=== PATIENT | female | born 1995 | race Caucasian/White ===

== ENCOUNTER → 2018-02-04 | Outpatient (REF) | payer OTHER | LOC: M SFHCLERA 14:17 | DX: R50.9 Fever, unspecified (principal) ==

== ENCOUNTER → 2018-08-08 | Outpatient (CLI) | payer OTHER | LOC: M RAD 12:53 | DX: R93.49 Abnormal radiologic findings on diagnostic imaging of other urinary organs (principal); Z3A.26 26 weeks gestation of pregnancy | CPT/HCPCS: 76811 ==

== ENCOUNTER 2018-08-31 14:16 | Outpatient (CLI) | payer OTHER ==
[~2018-08-31] VITALS: Ht 182.9 cm; Wt 131.7 kg
[2018-08-31 14:31] VITALS: BP 122/57
[2018-08-31] MEDS ORDERED: PRENTAB9 PO (15:02)
[2018-08-31] MEDS ORDERED: CETI5TA PO (15:02)
[2018-08-31 15:12] LABS: HEMOGLOBIN 11.5 g/dl (12.0-15.5); MEAN CORPUSCULAR HEMOGLOBIN 27.6 pg (27.0-33.0); MEAN CORPUSCULAR HGB CONC 31.9 g/dl (32.0-36.5); MEAN CORPUSCULAR VOLUME 86.3 fl (80.0-96.0); PLATELET COUNT, AUTOMATED 271 10^3/uL (150-450); RED BLOOD COUNT 4.17 10^6/uL (4.00-5.40); WHITE BLOOD COUNT 9.4 10^3/uL (4.0-10.0)
--- NOTE | 2018-09-01 10:27 | HPE ---
DATE OF ADMISSION: 08/31/2018 This is a 22-year-old, 1, para 0, last menstrual period 12/06/2017, estimated date of confinement (EDC) 10/14/2018 at 33 at 5 weeks of gestation who fell on her backside down 13 stairs 3 hours ago. She went to [facility]. She was told there was no facility for ultrasound and she was discharged. They did not do any investigation or examination. Her main complaint is she hit her large toe and it is bruised and a little bit black and blue but otherwise no vaginal loss or bleeding and no contractions. Risk factor: She has exercise-induced asthma. Her Body Mass Index (BMI) is 34.3 and the fetus has dilated renal pelvis. Labs are A+, HIV negative, hepatitis negative, RPR negative, rubella immune. Varicella immune. Pap is normal. Urine is negative. Gonorrhea and chlamydia are negative. 1-hour glucose was elevated at 146. Her 3-hour GTT her fasting was 92, her 1 hour was 198, her 2 hour was 126 and her 3 hour was 64. Her vital signs today: Her blood pressure is 122/57, respirations are 18, pulse 87, temperature 97.6. Urine is 1015 pH, 5+ leukocytes, and trace of protein. Hemoglobin 11.5, hematocrit 36.0, platelets 271. Betke Kleihauer is pending. PHYSICAL EXAMINATION: On examination, no acute distress. Symphysis fundus height is 32, vertex. No vaginal loss or bleeding. Ultrasound was performed, limited, vertex presentation. KEITH was normal. Spontaneous respirations are noted. Spontaneous movement of all four limbs were noted. KEITH was normal. Cervix was closed by vaginal exam. No active bleeding at the placental site. Her NST is category 1 with moderate variability, normal baseline, accelerations noted. No contractions. No decelerations. The rest the examination unremarkable. She is normocephalic, atraumatic. Neck with full range of motion. Pupils equal and reactive to light. Distal pulses symmetric. No evidence of deep vein thrombosis (DVT), pulmonary embolus, or superficial phlebitis. Chest is clear bilaterally to the bases. No wheezes or rhonchi. No CVA tenderness. Four quadrant bowel sounds are noted, quite pendulous abdomen is noted. She has no rashes, lesions or pruritus. She has no arthralgia, myalgia. She does complain of cramps in the big toe on the left foot from the fall, a bit of abrasion and scraping was noted. No active bleeding. No joint limitation. She has no complaint of cough, wheeze, shortness of breath, dyspnea on exertion. Not bleeding. Neuro complete. No incontinence, urgency or frequency. No nausea, vomiting, diarrhea or constipation. She passed a 3-hour GTT, failed a 1-hour glucose. GYNECOLOGIC HISTORY: Unremarkable. PAST MEDICAL HISTORY/PAST SURGICAL HISTORY: Noncontributory. FAMILY HISTORY: Noncontributory. SOCIAL HISTORY: She does not smoke, drink or abuse drugs. She is . No domestic violence. She has a good support system. In summary, we have a 33+ week who fell 3 to 4 hours ago. No active bleeding. No jeopardy. We will call back if the Cristian Sanchez is positive. Otherwise, the patient was discharged undelivered to followup with her routine appointment on October 06, 2018.
== END 2018-08-31 15:39 | disposition home or self-care (01) ==
LOC: M LDO 14:16 → M LDI 14:16 → M LDO 15:39
PROVIDERS: ATTEND Obstetrics & Gynecology
DX: O99.89 Other specified diseases and conditions complicating pregnancy, childbirth and the puerperium (principal); O9A.213 Injury, poisoning and certain other consequences of external causes complicating pregnancy, third trimester; W10.9XXA Fall (on) (from) unspecified stairs and steps, initial encounter; Y92.89 Other specified places as the place of occurrence of the external cause; O35.8XX0 Maternal care for other (suspected) fetal abnormality and damage, not applicable or unspecified; Z3A.33 33 weeks gestation of pregnancy
CPT/HCPCS: 59025; 76815; 85027; 85460; G0378; G0463

== ENCOUNTER 2018-10-12 10:57 | Outpatient (CLI) | payer OTHER ==
[~2018-10-12] VITALS: Ht 188 cm; Wt 139.8 kg
[~2018-10-12 10:57] MED LIST: CETI5TA PO; PRENTAB9 PO
[2018-10-12 11:24] VITALS: BP 129/84
[2018-10-12] MEDS ORDERED: RANI15TA PO (11:26)
--- NOTE | 2018-10-12 12:17 | NUR ---
[facility] L&D Outpatient Evaluation S: Noa is a 23 y/o G1 AT 39+5 weeks via L/8+2 week US presenting for low pelvic pressure and intermittent ctx since earlier this morning. She denies VB/L OF and endorses excellent FM. Her has been c/b obesity; excessive weight gain and exercise induced asthma. O: VSS/AF GEN: A&Ox3 ABD: Gravid NTTP; relaxed uterine resting tone EXT: no edema FHR: RNST; baseline 145, moderate variability, + accelerations, no decelerations; rare U/A. SCE: /0, cephalic vtx; IBOW A/P: Noa is a 23 y/o G1 at 39+5 via L/8+2 week US with uterine irritability and common physiologic discomforts of late gestation. She is not in active phase labor. Her BOW is intact. RNST with good FM. Reviewed comfort measures, warning signs and return precautions. She has JAYLA this week and has been encouraged to keep appt and consider maternity support belt. She reports understanding and denies further questions/concerns.
== END 2018-10-12 12:20 | disposition home or self-care (01) ==
LOC: M LDO 10:57
PROVIDERS: ATTEND Obstetrics & Gynecology
DX: O62.2 Other uterine inertia (principal); O47.1 False labor at or after 37 completed weeks of gestation; Z3A.39 39 weeks gestation of pregnancy
CPT/HCPCS: 59025; G0378; G0463

== ENCOUNTER 2018-10-21 12:31 | Inpatient (IN) | payer OTHER ==
[~2018-10-21] VITALS: Ht 188 cm; Wt 142.9 kg
[~2018-10-21 12:31] MED LIST changes: +RANI15TA PO
[2018-10-21 12:54] VITALS: BP 135/77
--- NOTE | 2018-10-21 13:47 | HPEPDOC ---
Obstetrical History & Physical General Date of Admission Oct 21, 2018 at 12:31 History of Present Illness 23 yo at 41+0 weeks today by 8+2 week US on [id number] presents today for an IOL for late term . She reports feeling well and denies any complaints. She denies any bleeding, leakage of fluid, or contractions. She endorses excellent movement. complicated by obesity (BMI~40). She had an abnormal 1hr GTT of 191, but normal 3hr testing. Chief Complaint: Induction of labor Information Provided By: Patient Age: 23 : 1 Term: 0 Pre-term: 0 Abortions: 0 Livin Care Care: Good Care Dating Final EDC: Oct 14, 2018 Final EDC for Daily Update: Oct 14, 2018 Final EDC by: 1st trimester (US) (8+2 week US on 06Mar2018 set TIGIST of [id number]) 1st Trimester Date: Mar 06, 2018 Antepartum Course Diagnos(e)s Obesity ---> BMI ~40, starting BMI 34 Abnormal 1hr of 191 --> normal 3 hour testing Initial dilated renal pelvis resolved with follow up imaging Past Medical History Past Obstetrical History : Past Obstetrical History: Primgravida STITCHER AROUND History: No pertinent history Past Medical History Medical History Obesity Exercise induced asthma Surgical History: Denies/None Family History Significant Family History: No pertinent family hx Family History Non contributory Social History Marital Status: Family situation: Spouse/partner home * Smoker: non-smoker Alcohol: Denies Drugs: denies Imunizations Tdap status: current Influenza Status: current Allergies Coded Allergies: Sulfa Antibiotics (Verified Allergy, Severe, RED RASH OVER ENTIRE BODY AND SKIN PEELING, 08/31/18) Latex (Verified Adverse Reaction, Mild, BANDAID REDNESS/ITCHING, 10/21/18) Medications Scheduled Multivitamins/ ( 27-0.8 mg) 1 Tab Tab, 1 TAB PO DAILY Scheduled PRN Ranitidine Hcl (Zantac) 150 Mg Tab, 150 MG PO BID PRN for HEARTBURN Physical Examination Physical Examination GENERAL: Alert and oriented times three. ABDOMEN: Gravid and non-tender to touch. FETUS: Is vertex (VTX) by sterile vaginal examination (SVE) EXTREMITIES: No edema. Vital Signs/I&O Vital Signs Date Time Temp Pulse Resp B/P (MAP) Pulse Ox O2 Delivery O2 Flow Rate FiO2 10/21/18 12:54 98.6 90 18 135/77 (96) Laboratory Data 24H LABS Laboratory Tests 2 10/21/18 12:46: Serology Scanned Report Hepatitis B Testing Urine Culture: No Growth Pertinent Laboratoy Data Blood Type: A+ RBC Antibody Screen: Negative HIV: Negative Hepatitis B: Negative Hepatitis C: Unknown Rapid Plasma Reagin: Nonreactive Rubella: Immune Varicella: Immune Chlamydia/Gonorrhea: Negative Group B Streptococcus: Negative Quad Screen Test: Unknown Cystic Fibrosis: Unknown Glucose Tolerance Test: 191 (1hr 191, 3hr normal) Anatomy Ultrasound Placenta Location: Posterior Normal Anatomy: Yes Placenta Previa: No Steroid Therapy Steroid Therapy: No Vaginal Examination Dilation: 1cm Effacement: 50% Station: -2 Cervical Consistency: Medium Cervical Position: Posterior Presentation: Cephalic presentation Position: Vertex (occiput) Assessment Heart Rate (FHR): 140 Variability: Moderate Accelerations: Positive Decelerations: None Tocometer Contractions: Yes Frequency: irregular Duration: less than 60 seconds Strength: palpated as mild Assessment/Plan Assessment 23 yo at 41+0 weeks presents for IOL today for late term . Plan Admit and orient. Geophysical Prospector and consent. Diet: Clears when on pitocin Group B Streptococcus (GBS) negative. Labs and intravenous (IV) per unit protocol. Wood bulb placed with 60ml saline intrauterine. Will add concurrent low dose pitocin. IV fluids per protocol. Anticipate normal spontaneous delivery (). C-S as appropriate. Garret Castro, DO Labor and Delivery Counseling /VAVD/FAVD counseling: Description: Deliver your baby through the vagina with possible assistance of forceps or vacuum device if needed for maternal or indications. Forceps and vacuum are devices that can assist with vaginal delivery when normal pushing efforts cannot achieve delivery on their own or when delivery is needed in an emergency for baby's well-being. Medications may be required to induce or a ugment (help) your labor in order to achieve a vaginal delivery. An episiotomy may be required to help your baby to delivery vaginally. You may also require repair of any lacerations or tears of your vagina or vulva that are caused by delivery. In some cases, emergencies can occur that require an emergency section delivery so quickly that there may not be enough time to stop and complete consent forms for section. Understand that if this occurs, your providers will discuss the need for a section with you before they proceed with surgery. section is the delivery of your baby through an incision in your abdomen. In some situations, section may be safer to mom and baby than continuing labor and is only performed when clinically indicated. Risks of vaginal delivery include but are not limited to: Bleeding, infection, injury to the vagina, pelvic structures, injury to baby, damage to the uterus, reactions to anesthesia, uterine rupture, risk of hysterectomy for life threatening bleeding, or . Medications used to induce or augment labor may increase your risk for infection, uterine tachysystole, uterine rupture, heart rate abnormalities, need for emergency delivery or possible hysterectomy, and hemorrhage. Additional risks for use of forceps and vacuum include: increased risk of perineal and vaginal lacerations, risk of urinary or bowel incontinence, increased risk of injury to baby with bruising, scratches, hematomas on the head, or intracranial bleeding. Ms. Herzog verbalizes understanding of these risks and elects to proceed. She also consents to blood products for transfusion should they become necessary, All patient questions answered. DO ROWENA Vasques CHRISTOPHER J. DO Oct 21, 2018 13:47
[2018-10-21] MEDS ORDERED: LACTATED RINGER'S 1000 ML IV STA (14:13)
[2018-10-21 14:18] LABS: BASO % 0.2 % (0.0-1.0); EOS % 0.3 % (0.0-3.0); HEMATOCRIT 36.5 % (36.0-47.0); HEMOGLOBIN 11.9 g/dl (12.0-15.5); LYMPH # 1.1 10^3/uL (1.5-6.5); LYMPH % 11.5 % (24.0-44.0); MEAN CORPUSCULAR HEMOGLOBIN 28.2 pg (27.0-33.0); MEAN CORPUSCULAR HGB CONC 32.6 g/dl (32.0-36.5); MEAN CORPUSCULAR VOLUME 86.5 fl (80.0-96.0); MONO # 0.8 10^3/uL (0.0-0.8); MONO % 7.7 % (0.0-5.0); NEUTROPHILS # 7.8 10^3/uL (1.8-7.7); NEUTROPHILS % 79.9 % (36.0-66.0); PLATELET COUNT, AUTOMATED 236 10^3/uL (150-450); RED BLOOD COUNT 4.22 10^6/uL (4.00-5.40); WHITE BLOOD COUNT 9.8 10^3/uL (4.0-10.0)
[2018-10-21 14:31] VITALS: BP 127/73
[2018-10-21 16:04] VITALS: BP 145/79
[2018-10-21] MEDS ORDERED: LR 1,000 ML IV SCH (18:11)
[2018-10-21] MEDS ORDERED: OXYTOCIN DRIP 30 UNITS in APPROPRIATE DILUENT 1 EA IV SCH (18:15)
[2018-10-21 18:26] VITALS: BP 141/81
[2018-10-21] MEDS ORDERED: BUTORPHANOL 2 MG/ML INJ (J0595) IV ONE (21:15)
--- NOTE | 2018-10-21 21:22 | IPNPDOC ---
Text Note Date of Service The patient was seen on 10/21/18. NOTE Wood bulb remains in place. She is on concurrent pitocin. She reports con sistent cramping but no significant pain. At times difficulty tracing baby due to movement and maternal body habitus. But FHR baseline 140, moderate variability, +accels, no decels. Patient may have IV analgesia if desired. Continue with concurrent management. Safe to proceed. Antoinette Guaman DO VS,Eva, I+O VS, Eva, I+O Laboratory Tests 10/21/18 14:04 Red Blood Count 4.22, Mean Corpuscular Volume 86.5, Mean Corpuscular Hemoglobin 28.2, Mean Corpuscular Hemoglobin Concent 32.6, Red Cell Distribution Width 15.1 H, Neutrophils (%) (Auto) 79.9 H, Lymphocytes (%) (Auto) 11.5 L, Monocytes (%) (Auto) 7.7 H, Eosinophils (%) (Auto) 0.3, Basophils (%) (Auto) 0.2, Neutrophils # (Auto) 7.8 H, Lymphocytes # (Auto) 1.1 L, Monocytes # (Auto) 0.8, Eosinophils # (Auto) 0.0, Basophils # (Auto) 0.0 Vital Signs Date Time Temp Pulse Resp B/P (MAP) Pulse Ox O2 Delivery O2 Flow Rate FiO2 10/21/18 18:26 97.8 67 18 141/81 (101) ANTOINETTE GUAMAN DO Oct 21, 2018 21:22
--- NOTE | 2018-10-22 01:59 | IPNPDOC ---
Text Note Date of Service The patient was seen on 10/22/18. NOTE Wood bulb came out at ~2200. She has been on pitocin. Noa is reporting significantly increased pain. Cervix: 6/C/0. AROM performed productive of clear/bloody fluid. FSE placed. FHR Cat I with moderate variability, +accels, no decels. Noa is progressing well on pitocin. Epidural or IV analgesia as desired. Safe to proceed. DO Matthew VS,Eva I+O VS, Eva I+O Laboratory Tests 10/21/18 14:04 Red Blood Count 4.22, Mean Corpuscular Volume 86.5, Mean Corpuscular Hemoglobin 28.2, Mean Corpuscular Hemoglobin Concent 32.6, Red Cell Distribution Width 15.1 H, Neutrophils (%) (Auto) 79.9 H, Lymphocytes (%) (Auto) 11.5 L, Monocytes (%) (Auto) 7.7 H, Eosinophils (%) (Auto) 0.3, Basophils (%) (Auto) 0.2, Neutrophils # (Auto) 7.8 H, Lymphocytes # (Auto) 1.1 L, Monocytes # (Auto) 0.8, Eosinophils # (Auto) 0.0, Basophils # (Auto) 0.0 Vital Signs Date Time Temp Pulse Resp B/P (MAP) Pulse Ox O2 Delivery O2 Flow Rate FiO2 10/21/18 18:26 97.8 67 18 141/81 (101) I&O- Last 24 Hours up to 6 AM 10/22/18 06:00 Intake Total 1000 ml Balance 1000 ml ANTOINETTE GUAMAN DO Oct 22, 2018 01:59
[2018-10-22] MEDS ORDERED: OXYTOCIN DRIP 30 UNITS in APPROPRIATE DILUENT 1 EA IV SCH (03:28)
[2018-10-22] MEDS ORDERED: ACETAMINOPHEN 500 MG TAB PO PRN (03:30)
[2018-10-22] MEDS ORDERED: MOM 30ML SUSPENSION UDC PO PRN (03:30)
[2018-10-22] MEDS ORDERED: DIBUCAINE 1% OINTMENT 30GM TOP PRN (03:30)
[2018-10-22] MEDS ORDERED: ONDANSETRON 4MG/2ML VIAL (J2405) IV PRN (03:30)
[2018-10-22] MEDS ORDERED: MEASLES,MUMPS,RUBELLA VACCINE INJ (MMR-II) (90707) SC SCH (03:30)
[2018-10-22] MEDS ORDERED: LIDOCAINE 1% MDV 20ML VIAL SC ONE (03:30)
[2018-10-22] MEDS ORDERED: ANUSOL HC CREAM 30GM TOP PRN (03:30)
[2018-10-22] MEDS ORDERED: METHYLERGONOVINE MALEATE 0.2 MG/ML VIAL (J2210) IM ONE (03:30)
[2018-10-22] MEDS ORDERED: IBUPROFEN 800 MG TAB PO PRN (03:30)
[2018-10-22] MEDS ORDERED: RHOGAM 300 MCG (1500 IU) INJ (J2790) IM SCH (03:30)
--- NOTE | 2018-10-22 03:40 | DNPDOC ---
[facility] Delivery Note Delivery Note DATE OF DELIVERY: 21Oct2018 at ~0300 PREDELIVERY DIAGNOSIS: 41+1 weeks' gestation late term IOL POST DELIVERY DIAGNOSIS: Delivered. PROCEDURE: Spontaneous vaginal delivery COIL CONNECTOR REPAIRER: Dr. Castro ANESTHESIA: None. ESTIMATED BLOOD LOSS: 500 mL. FINDINGS: 9 pound, 4 ounce (4200 grams), male infant, Score 9/9 DELIVERY SUMMARY: Presented to room for assessment. Cervix C/C/+2 and Noa had a strong urge to push. The bed was broken down and she was prepped for delivery. With excellent effort pushing effort her infant delivered. Presentation was DEEPAK with restitution to [facility]. The right anterior shoulder delivered with gentle guidance followed easily by the remainder of the body. There was a nuchal cord that was delivered through and reduced manually. The was dried and stimulated on the field and a bulb suction was used. The infant cried vigorously and was placed on the maternal abdomen. The three vessel cord was then clamped and cut by the FOB. A true knot was noted in the umbilical cord. Third stage was spontaneous and it was productive of an intact placenta. The uterine fundus was firmed with massage and pitocin was administered IV bolus. The vagina, cervix, and perineum were inspected. There was a midline 2nd degree laceration and bilateral sulcal / vaginal side wall lacerations that were bleeding briskly. The anal sphincter muscles were identified and confirmed to be intact. Lidocaine was then injected along the vagina and perineum for the repair and the patient declined any further pain medication. The lacerations were all repaired with 3-0 vicryl suture in multiple figure of eight sutures and running locked sutures. There was excellent cosmesis with the repair. Uterine atony developed that responded to manual massage and 0.2mg IM methergine. There was, however, persistent oozing throughout the vagina from numerous abrasions and vaginal packing was placed. There was then excellent hemostasis. A cline catheter was then inserted to drain the bladder. The uterine fundus was palpated again and was firm. A rectal exam was then performed and confirmed no defects or sutures in the rectum or anal sphincter. Sponge, instrument, and needle counts were correct X2. Mo ther stable when I left the room. DO ROWENA Vasques CHRISTOPHER J. DO Oct 22, 2018 03:40
[2018-10-22] MEDS: METHYLERGONOVINE MALEATE 0.2 MG TAB PO SCH ×4 (04:45→22:06)
[2018-10-22 07:28] VITALS: BP 129/72
[2018-10-22] MEDS: PRENATAL VITAMINS CHEWABLE TABLET PO SCH (10:28)
--- NOTE | 2018-10-22 12:55 | IPNPDOC ---
Text Note Date of Service The patient was seen on 10/22/18. NOTE SBAR from Dr Benitez, I am covering for her. Del note reviewed from this AM by Dr Castro. No heavy VB noted by her PP RN. Vag packing removed, will also remove cline with DTV in 6 hrs. No backup or clots or brisk bleeding noted after packing out. SBAR to Dr Benitez Sessions VS,Eva, I+O VS, Eva I+O Laboratory Tests 10/21/18 14:04 Red Blood Count 4.22, Mean Corpuscular Volume 86.5, Mean Corpuscular Hemoglobin 28.2, Mean Corpuscular Hemoglobin Concent 32.6, Red Cell Distribution Width 15.1 H, Neutrophils (%) (Auto) 79.9 H, Lymphocytes (%) (Auto) 11.5 L, Monocytes (%) (Auto) 7.7 H, Eosinophils (%) (Auto) 0.3, Basophils (%) (Auto) 0.2, Neutrophils # (Auto) 7.8 H, Lymphocytes # (Auto) 1.1 L, Monocytes # (Auto) 0.8, Eosinophils # (Auto) 0.0, Basophils # (Auto) 0.0 Vital Signs Date Time Temp Pulse Resp B/P (MAP) Pulse Ox O2 Delivery O2 Flow Rate FiO2 10/22/18 07:28 99.3 78 20 129/72 (91) I&O- Last 24 Hours up to 6 AM 10/22/18 06:00 Intake Total 1000 ml Output Total 500 ml Balance 500 ml SESSIONS,ZAKI Kothari MD Oct 22, 2018 12:54
[2018-10-22 18:00] VITALS: BP 131/72
[2018-10-23 05:47] VITALS: BP 120/65
[2018-10-23 07:06] LABS: HEMATOCRIT 29.6 % (36.0-47.0); MEAN CORPUSCULAR HEMOGLOBIN 27.9 pg (27.0-33.0); MEAN CORPUSCULAR HGB CONC 31.8 g/dl (32.0-36.5); MEAN CORPUSCULAR VOLUME 87.8 fl (80.0-96.0); PLATELET COUNT, AUTOMATED 191 10^3/uL (150-450); RED BLOOD COUNT 3.37 10^6/uL (4.00-5.40); WHITE BLOOD COUNT 12.1 10^3/uL (4.0-10.0)
[2018-10-23 07:16] LABS: HEMOGLOBIN 9.4 g/dl (12.0-15.5)
--- NOTE | 2018-10-23 07:55 | IPNPDOC ---
Progress Note Date of Service: Oct 23, 2018 Day#: 1 Progress Note PPD 1 SUBJECT: Noa is a 23yo G1 now P1001 who underwent an uncomplicated on [id number] very early in the morning, doing well day #1. She has been ambulating, voiding spontaneously without issue and tolerating regular diet. Breast feeding without issue. Reports lochia is like a normal period. No n/v/f/c. OBJECTIVE: VITAL SIGNS: Within normal limits, afebrile. Alert and oriented times three. Abdomen: Fundus firm at U-2. Soft, NTTP. ASSESSMENT: Noa is a 23yo G1 now P1001 who underwent an uncomplicated on [id number] very early in the morning, doing well day #1. Vitals within normal limits, afebrile, hemodynamically stable with no evidence of infection. PLAN: 1. Discharge to home today. 2. Tylenol and Motrin for pain. 3. Uncertain about desired contraception, will discuss further at PP visit 5. Routine PP visit in 6 weeks in clinic. 6. Discussed return precautions at length. Dr. Nuria Benitez MD VS, I&O, 24H, [facility] Vital Signs/I&O Vital Signs Date Time Temp Pulse Resp B/P (MAP) Pulse Ox O2 Delivery O2 Flow Rate FiO2 10/23/18 05:47 97.4 88 16 120/65 (83) I&O- Last 24 Hours up to 6 AM 10/23/18 06:00 Output Total 2920 ml Balance -2920 ml Laboratory Data 24H LABS Laboratory Tests 2 10/23/18 06:53: Nucleated Red Blood Cells % (auto) 0.0 CBC/BMP Laboratory Tests 10/23/18 06:53 Red Blood Count 3.37 L, Mean Corpuscular Volume 87.8, Mean Corpuscular Hemoglobin 27.9, Mean Corpuscular Hemoglobin Concent 31.8 L, Red Cell Distribution Width 15.6 H Nuria Benitez MD Oct 23, 2018 07:55
[2018-10-23] MEDS: PRENATAL VITAMINS CHEWABLE TABLET PO SCH (08:23)
[2018-10-23] MEDS ORDERED: MAPA500T2 PO (09:25)
[2018-10-23] MEDS ORDERED: IBUP-1114 PO (09:25)
[2018-10-23] MEDS ORDERED: NUPE1OIN2 TOP (09:25)
--- NOTE | 2018-10-28 17:24 | IPN ---
DATE: 10/28/2018 This patient requested circumcision of her male . After discussing risks and benefits of circumcision, the medical nonmedical indications, penile block, and aftercare, expressed understanding penile block, aftercare, and bleeding, signed the consent form. All questions were answered. A 20-minute discussion. We await the clearance by the patternmaker wood.
== END 2018-10-23 11:35 | disposition home or self-care (01) | DRG 807 ==
LOC: M LDI 12:31 → M OBS 10-22 08:02
PROVIDERS: ADMIT Obstetrics & Gynecology; ATTEND Obstetrics & Gynecology
PROC: 3E033VJ Introduction of Other Hormone into Peripheral Vein, Percutaneous Approach (ICD-10-PCS; 2018-10-21)
PROC: 10E0XZZ Delivery of Products of Conception, External Approach (ICD-10-PCS; principal; 2018-10-22)
PROC: 0KQM0ZZ Repair Perineum Muscle, Open Approach (ICD-10-PCS; 2018-10-22)
PROC: 10907ZC Drainage of Amniotic Fluid, Therapeutic from Products of Conception, Via Natural or Artificial Opening (ICD-10-PCS; 2018-10-22)
DX: O48.0 Post-term pregnancy (principal); Z37.0 Single live birth; Z3A.41 41 weeks gestation of pregnancy; O99.214 Obesity complicating childbirth; E66.9 Obesity, unspecified; Z68.34 Body mass index [BMI] 34.0-34.9, adult; O70.1 Second degree perineal laceration during delivery; O69.81X0 Labor and delivery complicated by cord around neck, without compression, not applicable or unspecified

== ENCOUNTER 2022-12-31 17:44 | Emergency (ER) | payer OTHER ==
[~2022-12-31] VITALS: Ht 188 cm; Wt 132.0 kg
[2022-12-31 17:44] VITALS: BP 125/74
[~2022-12-31 17:44] MED LIST changes: +IBUP-1114 PO; +MAPA500T2 PO; +NUPE1OIN2 TOP
[2022-12-31] MEDS ORDERED: AUGMENTIN 875 MG TAB PO ONE (19:55)
[2022-12-31] MEDS ORDERED: AMOX875T2 PO (19:57)
[2022-12-31] MEDS ORDERED: LIDO15SO PO (19:57)
== END 2022-12-31 20:02 | disposition home or self-care (01) ==
LOC: M ED 17:44
DX: K04.7 Periapical abscess without sinus (principal); K21.9 Gastro-esophageal reflux disease without esophagitis; Z88.2 Allergy status to sulfonamides; Z88.8 Allergy status to other drugs, medicaments and biological substances; Z79.899 Other long term (current) drug therapy